=== PATIENT | female | born 1940 | race Caucasian/White ===

== ENCOUNTER 2017-06-11 12:45 | Inpatient (IN) | payer OTHER ==
[~2017-06-11] VITALS: Ht 154.9 cm; Wt 74.5 kg
[2017-06-11 13:00] VITALS: BP 152/82
[2017-06-11 13:34] LABS: BASOPHILS % (AUTO) 0.1 % (0.0-5.0); EOSINOPHILS % (AUTO) 4.4 % (0.0-8.0); HEMATOCRIT 33.4 % (36-48); LYMPHOCYTES % (AUTO) 28.8 % (21.0-51.0); MEAN CORPUSCULAR HEMOGLOBIN 24.6 pg (27.0-33.0); MEAN CORPUSCULAR HGB CONC 31.9 g/dL (32.0-36.0); MEAN CORPUSCULAR VOLUME 77.2 fL (79-99); MONOCYTES % (AUTO) 11.1 % (3.0-13.0); NEUTROPHILS % (AUTO) 55.6 % (40.0-77.0); PLATELET COUNT (AUTO) 400 K/uL (130-400); RED BLOOD CELL COUNT(AUTO) 4.33 MIL/uL (4.00-5.50); RED CELL DISTRIBUTION WIDTH 15.4 % (11.0-15.5); WHITE BLOOD COUNT (AUTO) 8.2 K/uL (4.8-10.8)
[2017-06-11 13:38] LABS: CREATININE 0.9 mg/dL (0.5-1.5)
[2017-06-11] MEDS ORDERED: VITAMIN D PO (14:25)
[2017-06-11] MEDS ORDERED: TYLENOL ARTHRITIS PO (14:25)
[2017-06-11] MEDS ORDERED: ESOM40CA PO (14:25)
[2017-06-11] MEDS ORDERED: AEC81 PO (14:25)
[2017-06-11] MEDS ORDERED: VENL100T4 PO (14:25)
[2017-06-11] MEDS ORDERED: [UNRECOGNIZED DRUG - OTHER] TP (14:25)
[2017-06-11] MEDS ORDERED: LEVO50TA11 PO (14:25)
[2017-06-11] MEDS ORDERED: ADVIL PO (14:25)
[2017-06-11] MEDS ORDERED: CELE200C PO (14:25)
[2017-06-11] MEDS ORDERED: PRAV10TA39 PO (14:25)
[2017-06-11] MEDS ORDERED: LEVO75TA10 PO (14:25)
[2017-06-11] MEDS ORDERED: SENN-107 PO (14:25)
[2017-06-11] MEDS ORDERED: AMLO2.5T PO (14:25)
[2017-06-15] VITALS (26 sets, daily range): BP systolic 99–147; BP diastolic 48–92
[2017-06-15] MEDS: CEFAZOLIN SODIUM 1 GM VIAL IVP SCH ×2 (06:00→07:30)
[2017-06-15] MEDS ORDERED: LACTATED RINGERS 1000ML 1,000 ML IV ONE (06:35)
[2017-06-15] MEDS ORDERED: EPINEPHRINE 1 MG/ML AMPULE ONE (06:49)
[2017-06-15] MEDS ORDERED: DURAMORPH PF1 MG/ML 10ML AMP IV ONE (06:49)
[2017-06-15] MEDS ORDERED: BUPIVACAINE/PF 0.25% 30ML VIAL IJ ONE (06:49)
[2017-06-15] MEDS ORDERED: SUCCINYLCHOLINE 200MG/10ML SYR ONE (07:09)
[2017-06-15] MEDS ORDERED: LIDOCAINE PF 2% 5ML ABBOJECT ONE (07:09)
[2017-06-15] MEDS ORDERED: NEOSTIGMINE METHYLSULFATE 1MG/ML IV ONE ×3 (07:09→08:17)
[2017-06-15] MEDS ORDERED: ONDANSETRON HCL 4 MG/2 ML VIAL ONE ×2 (07:09→08:19)
[2017-06-15] MEDS ORDERED: GLYCOPYRROLATE 0.2 MG/ML 5 ML VIAL ONE ×2 (07:09→08:17)
[2017-06-15] MEDS ORDERED: DEXAMETHASONE SOD PHOSPHATE 10MG/ML 1ML VIAL ONE ×2 (07:09→08:18)
[2017-06-15] MEDS ORDERED: MIDAZOLAM HCL 1 MG/ML 2ML VIAL ONE (07:10)
[2017-06-15] MEDS ORDERED: PROPOFOL 10 MG/ML 20ML VIAL IV ONE (07:10)
[2017-06-15] MEDS ORDERED: FENTANYL CITRATE PF 50 MCG/1 ML 2ML VIAL ONE ×3 (07:10→11:05)
[2017-06-15] MEDS ORDERED: THROMBIN 20000 UNITS/VIAL POWDER TP ONE (07:30)
[2017-06-15] MEDS: BACITRACIN 50,000 UNIT VIAL ONE ×2 (07:30→12:00)
[2017-06-15] MEDS ORDERED: ARTIFICIAL TEARS 3.5 GM OINTMENT ONE ×2 (07:50→08:18)
[2017-06-15] MEDS ORDERED: EPHEDRINE SULFATE 50 MG/ML AMPULE ONE (08:09)
[2017-06-15] MEDS ORDERED: PHENYLEPHRINE HCL 10 MG/ML 1ML VIAL IV ONE (08:17)
[2017-06-15] MEDS ORDERED: ROCURONIUM BROMIDE 10MG/1ML 5ML VL ONE (08:18)
[2017-06-15] MEDS ORDERED: ESMOLOL HCL 10 MG/ML 10 ML VIAL ONE (08:18)
[2017-06-15] MEDS ORDERED: METOCLOPRAMIDE 10 MG/2 ML VIAL ONE (08:18)
[2017-06-15] MEDS ORDERED: OXYMETAZOLINE HCL SPRAY 15 ML BOTTLE ONE (08:19)
[2017-06-15] MEDS ORDERED: BACITRACIN 50,000 UNIT VIAL ONE (11:04)
[2017-06-15] MEDS ORDERED: CEFAZOLIN SODIUM 1 GM VIAL ONE (11:09)
[2017-06-15] MEDS ORDERED: FUROSEMIDE 10 MG/ML 4ML VIAL ONE (11:40)
[2017-06-15] MEDS ORDERED: ACETAMINOPHEN EXTRA STRENGTH 500 MG TABLET PO PRN (12:45)
[2017-06-15] MEDS ORDERED: MORPHINE SULFATE 2 MG/ML 1ML SYG IVP PRN (12:45)
[2017-06-15] MEDS ORDERED: CELECOXIB 200 MG CAP PO PRN (12:45)
[2017-06-15] MEDS ORDERED: SODIUM CHLORIDE 0.9% 10 ML VIAL IVP PRN (12:45)
[2017-06-15] MEDS ORDERED: CEFAZOLIN 2GM / 50 ML 50 ML IV SCH (12:45)
[2017-06-15] MEDS ORDERED: APPL TP SCH (12:45)
[2017-06-15] MEDS ORDERED: HYDROCODONE/ACETAMINOPHEN 5/325 MG TAB PO PRN (12:45)
[2017-06-15] MEDS ORDERED: PROMETHAZINE HCL 25 MG/ML 1ML AMPULE IM PRN (12:45)
[2017-06-15] MEDS ORDERED: PANTOPRAZOLE SODIUM 40 MG TABLET.DR PO SCH (12:45)
[2017-06-15] MEDS ORDERED: ADVIL PO SCH (12:45)
[2017-06-15] MEDS: DEXAMETHASONE SOD PHOSPHATE 4 MG/ML 1ML VIAL IVP SCH ×2 (14:51→20:10)
[2017-06-15] MEDS: LACTATED RINGERS 1000ML 1,000 ML IV SCH (14:51)
[2017-06-15] MEDS ORDERED: CEFAZOLIN SODIUM 1 GM VIAL IVP ONE (16:00)
[2017-06-15] MEDS ORDERED: VENLAFAXINE HCL 50 MG TABLET PO SCH (21:00)
[2017-06-15] MEDS ORDERED: SENNOSIDES PO SCH (21:00)
[2017-06-15] MEDS ORDERED: ASPIRIN 81 MG EC TAB PO SCH (21:00)
[2017-06-15] MEDS ORDERED: ATORVASTATIN CALCIUM 10 MG TABLET PO SCH (21:00)
[2017-06-15] MEDS ORDERED: VITAMIN D PO SCH (21:00)
[2017-06-15] MEDS ORDERED: DOCUSATE SODIUM PO SCH (21:00)
[2017-06-16] VITALS: BP 111/62
[2017-06-16] MEDS: LACTATED RINGERS 1000ML 1,000 ML IV SCH (02:02)
[2017-06-16] MEDS: DEXAMETHASONE SOD PHOSPHATE 4 MG/ML 1ML VIAL IVP SCH ×2 (03:17→08:30)
[2017-06-16 04:00] VITALS: BP 117/66
[2017-06-16] MEDS ORDERED: LEVOTHYROXINE 75 MCG TABLET PO SCH (06:30)
[2017-06-16 07:43] VITALS: BP 112/66
[2017-06-16] MEDS ORDERED: AMLODIPINE BESYLATE 2.5 MG TAB PO SCH (09:00)
[2017-06-19] MEDS ORDERED: LEVOTHYROXINE 50 MCG TABLET PO SCH (06:30)
[2017-06-20] MEDS ORDERED: LEVOTHYROXINE 50 MCG TABLET PO SCH (06:30)
== END 2017-06-16 09:21 | disposition home or self-care (01) | DRG 460 ==
LOC: DAHIP 06-15 05:53 → EDBD 06-15 07:30 → EDSTATUS 06-15 07:30 → 4AH 06-15 13:31
PROVIDERS: ADMIT Neurological Surgery; ATTEND Neurological Surgery
PROC: 0SG00AJ Fusion of Lumbar Vertebral Joint with Interbody Fusion Device, Posterior Approach, Anterior Column, Open Approach (ICD-10-PCS; principal; 2017-06-15 07:35)
PROC: 4A11X4G Monitoring of Peripheral Nervous Electrical Activity, Intraoperative, External Approach (ICD-10-PCS; 2017-06-15 07:35)
DX: M48.061 Spinal stenosis, lumbar region without neurogenic claudication (principal); M43.16 Spondylolisthesis, lumbar region; M54.10 Radiculopathy, site unspecified; Z90.49 Acquired absence of other specified parts of digestive tract
CPT/HCPCS: 36415; 76000; 80048; 85025; 93005; A4344; J0171; J0330; J0690; J1100; J1940; J2001; J2250; J2274; J2370; J2405; J2704; J2710; J2765; J3010; J3490; J7030; J7120

== ENCOUNTER → 2017-07-16 | Outpatient (CLI) | payer OTHER ==
[~2017-07-16] MED LIST: ADVIL PO; AEC81 PO; AMLO2.5T PO; CELE200C PO; ESOM40CA PO; LEVO50TA11 PO; LEVO75TA10 PO; PRAV10TA39 PO; SENN-107 PO; TYLENOL ARTHRITIS PO; VENL100T4 PO; VITAMIN D PO; [UNRECOGNIZED DRUG - OTHER] TP
== END ==
LOC: OIH 08:35
PROVIDERS: ATTEND Neurological Surgery
DX: M47.897 Other spondylosis, lumbosacral region (principal); Z98.890 Other specified postprocedural states
CPT/HCPCS: 72100

== ENCOUNTER → 2019-01-18 | Outpatient (CLI) | payer OTHER ==
[~2019-01-18] VITALS: Ht 158.8 cm; Wt 72.1 kg
[~2019-01-18] MED LIST changes: -ADVIL PO; -AMLO2.5T PO; +AMLO2.5T4 PO; +CEFAZOLIN SODIUM 1 GM VIAL IVP SCH; +ERGO500014 PO; +IRON PO; +LACTATED RINGERS 1000ML 1,000 ML IV SCH; -TYLENOL ARTHRITIS PO; -[UNRECOGNIZED DRUG - OTHER] TP; +calcium 600 mg
[2019-01-18 10:43] LABS: BASOPHILS % (AUTO) 1.3 % (0.0-5.0); EOSINOPHILS % (AUTO) 4.2 % (0.0-8.0); HEMATOCRIT 39.5 % (36-48); LYMPHOCYTES % (AUTO) 30.3 % (21.0-51.0); MEAN CORPUSCULAR HEMOGLOBIN 27.5 pg (27.0-33.0); MEAN CORPUSCULAR HGB CONC 32.9 g/dL (32.0-36.0); MEAN CORPUSCULAR VOLUME 83.6 fL (79-99); MONOCYTES % (AUTO) 11.4 % (3.0-13.0); NEUTROPHILS % (AUTO) 52.8 % (40.0-77.0); NUCLEATED RED BLOOD CELLS 0.1 % (0.0-0.19); PLATELET COUNT (AUTO) 362 K/uL (130-400); RED BLOOD CELL COUNT(AUTO) 4.73 MIL/uL (4.00-5.50); RED CELL DISTRIBUTION WIDTH 14.7 % (11.0-15.5)
[2019-01-18 10:48] LABS: CREATININE 0.9 mg/dL (0.5-1.5); POTASSIUM 4.2 mmol/L (3.5-5.1)
[2019-01-18 12:15] VITALS: BP 176/86
== END ==
LOC: DAH 10:00 → EDSTATUS 10:30
PROVIDERS: ATTEND Orthopaedic Surgery
DX: G56.01 Carpal tunnel syndrome, right upper limb (principal); Z53.8 Procedure and treatment not carried out for other reasons
CPT/HCPCS: 36415; 80048; 85025; 93005

== ENCOUNTER 2019-03-30 06:46 | Day surgery (SDC) | payer OTHER ==
[2019-03-24 13:18] LABS: CREATININE 0.8 mg/dL (0.5-1.5); POTASSIUM 4.3 mmol/L (3.5-5.1)
[2019-03-24 13:22] LABS: BASOPHILS % (AUTO) 0.8 % (0.0-5.0); EOSINOPHILS % (AUTO) 4.8 % (0.0-8.0); HEMATOCRIT 39.2 % (36-48); LYMPHOCYTES % (AUTO) 29.9 % (21.0-51.0); MEAN CORPUSCULAR HGB CONC 32.3 g/dL (32.0-36.0); MEAN CORPUSCULAR VOLUME 83.6 fL (79-99); MONOCYTES % (AUTO) 11.1 % (3.0-13.0); NEUTROPHILS % (AUTO) 53.4 % (40.0-77.0); PLATELET COUNT (AUTO) 306 K/uL (130-400); RED BLOOD CELL COUNT(AUTO) 4.69 MIL/uL (4.00-5.50); RED CELL DISTRIBUTION WIDTH 14.8 % (11.0-15.5); WHITE BLOOD COUNT (AUTO) 6.5 K/uL (4.8-10.8)
[2019-03-24 14:32] VITALS: BP 163/79
[~2019-03-30] VITALS: Ht 154.9 cm; Wt 73.0 kg
[2019-03-30] VITALS (17 sets, daily range): BP systolic 138–159; BP diastolic 70–87
[2019-03-30] MEDS: CEFAZOLIN SODIUM 1 GM VIAL IVP SCH ×2 (06:00→08:55)
[~2019-03-30 06:46] MED LIST changes: -CEFAZOLIN SODIUM 1 GM VIAL IVP SCH; -CELE200C PO; -ESOM40CA PO; -LACTATED RINGERS 1000ML 1,000 ML IV SCH; -LEVO50TA11 PO
[2019-03-30] MEDS ORDERED: LACTATED RINGERS 1000ML 1,000 ML IV ONE (07:55)
[2019-03-30] MEDS ORDERED: LIDOCAINE HCL 2% 20ML ONE (09:10)
--- NOTE | 2019-03-30 11:30 | NUR ---
LATE ENTRY NO INSTRUCTIONS IN REGARDS TO DRESSING FOR PATIENT, CALLED DOCTOR [facility] OFFICE AND SPOKE TO ALFREDO CASTANEDA MA AND PER ALFREDO WHYTE DOES NOT WANT PT TO REMOVE DRESSING UNTIL SEEN IN OFFICE, EXPLAINED TO PT, NO CONCERNS
== END 2019-03-30 12:00 | disposition home or self-care (01) ==
LOC: DAH 06:46
PROVIDERS: ATTEND Orthopaedic Surgery
DX: G56.01 Carpal tunnel syndrome, right upper limb (principal); I10 Essential (primary) hypertension; F41.9 Anxiety disorder, unspecified; F32.9 Major depressive disorder, single episode, unspecified; E78.00 Pure hypercholesterolemia, unspecified; M19.90 Unspecified osteoarthritis, unspecified site; Z79.899 Other long term (current) drug therapy; Z79.82 Long term (current) use of aspirin
CPT/HCPCS: 36415; 64721; 80048; 85025; 93005; A4215; A4221; A4222; A4223; A4649; A4663; A4930; A5120; J0690; J1100; J2001; J2250; J2704; J3010; J3490; J7120